=== PATIENT | female | born 1965 | race Hispanic/Latino ===

== ENCOUNTER 2016-09-25 11:47 | Outpatient (CLI) | payer OTHER ==
--- NOTE | 2016-09-25 12:28 | Mammography Report ---
BILATERAL DIGITAL SCREENING MAMMOGRAM with CAD: 09/24/16 14:29:00 CLINICAL: Baseline screening. FINDINGS: The breasts are heterogeneously dense, which may obscures small masses. An oval circumscribed left upper outer mass measures approximately 3.5 cm maximum dimension.No architectural distortion or suspicious calcifications.The right breast is negative. The patient returned for a left breast ultrasound on 09/25/16 and ultrasound demonstrated a benign cyst at 2 o'clock 3 cm from the nipple measuring 3.6 x 1.7 x 3.3 cm. It correlates with the mammographic mass. A second cyst at 8 o'clock 3 cm from the nipple measures 8 x 6 x 4 mm. IMPRESSION: Benign cysts of the left breast. Since the larger cyst has been painful, I discussed the option of her returning for an ultrasound guided cyst aspiration for pain relief. She stated that she prefers to wait and see if it regresses on its on. BI-RADS CATEGORY: 2 - - Benign RECOMMENDATION: Ultrasound guided left cyst aspiration if the cyst becomes more painful. Recommend routine mammographic screening in one year. ACR BI-RADS MAMMOGRAPHIC CODES: 0 = Needs additional imaging evaluation; 1 = Negative; 2 = Benign; 3 = Probably benign; 4 = Suspicious; 5 = Malignant; 6 = Known biopsy-proven malignancy COMMENT: 1. Dense breast tissue, i.e., adenosis, fibrocystic changes, etc., may obscure an underlying neoplasm. 2. Approximately 10% of cancers are not detected with mammography. 3. A negative mammography report should not delay biopsy if a clinically suspicious mass is present. COMMENT: Patient follow-up letters are generated via our [employer] application.
--- NOTE | 2016-09-25 12:29 | Ultrasound Report ---
LEFT BREAST ULTRASOUND: 09/25/16 11:47:00 CLINICAL: Left upper outer breast mass on screening mammogram. COMPARISON: 09/24/16 mammogram FINDINGS: Ultrasound of the left breast(including all four quadrants and the retroareolar area) was performed and demonstrated a benign cyst at 2 o'clock 3 cm from the nipple measuring 3.6 x 1.7 x 3.3 cm. It correlates with the mammographic mass. A second cyst at 8 o'clock 3 cm from the nipple measures 8 x 6 x 4 mm. IMPRESSION: Benign cysts of the left breast. Since the larger cyst has been painful, I discussed the option of her returning for an ultrasound guided cyst aspiration for pain relief. She stated that she prefers to wait and see if it regresses on its on. BI-RADS CATEGORY: 2 - - Benign RECOMMENDATION: Ultrasound guided left cyst aspiration if the cyst becomes more painful. Recommend routine mammographic screening in one year.
== END 2016-09-25 11:48 | disposition home or self-care (01) ==
LOC: SPVWC 11:47
PROVIDERS: ATTEND Obstetrics & Gynecology
DX: Z12.31 Encounter for screening mammogram for malignant neoplasm of breast (principal); N60.02 Solitary cyst of left breast; N63 Unspecified lump in breast
CPT/HCPCS: 76641; G0202; 77067